=== PATIENT | female | born 1975 | race Caucasian/White ===

== ENCOUNTER 2022-03-16 14:24 | Emergency (ER) | payer BC ==
[~2022-03-16] VITALS: Ht 160 cm; Wt 69.1 kg
[2022-03-16 14:27] VITALS: TEMP 98.8
[2022-03-16] MEDS ORDERED: FLEXERIL 1010 MG/TAB PO (15:22)
[2022-03-16 15:33] VITALS: BP 112/72; PULSE 66
== END 2022-03-16 15:40 | disposition home or self-care (01) ==
LOC: COL.ER 14:24
DX: M54.50 Low back pain, unspecified (principal); G89.29 Other chronic pain; Z28.310 Unvaccinated for COVID-19
CPT/HCPCS: J1885; J2360